=== PATIENT | female | born 1995 | race Caucasian/White ===

== ENCOUNTER 2018-12-21 10:10 | Emergency (ER) | payer OTHER ==
[~2018-12-21] VITALS: Ht 154.9 cm; Wt 53.5 kg
[~2018-12-21 10:10] MED LIST: ADVIL200 M1 PO; AZO CRANBERRY1 EAC1 PO; BACTRIM DS TAB1 EACH PO; BUSPIRONE HCL5 MG PO; DEPO SHOT; ESCITALOPRAM OXA5 MG PO; KELNOR 1-351 EACH PO; LEVAQUIN500 MG PO; MACROBID 100 M100 MG PO; NORCO 5-325 TA1 EACH PO; ORTHO TRI-CYCL1 EAC1 PO; VENTOLIN HFA18 GM INH; XANAX XR0.5 MG PO; XANAX0.5 MG PO
[2018-12-21] MEDS ORDERED: PRENATA CHEWAB1 EACH PO (10:30)
== END 2018-12-21 14:00 | disposition home or self-care (01) ==
LOC: ED 10:10
DX: O99.89 Other specified diseases and conditions complicating pregnancy, childbirth and the puerperium (principal); R10.2 Pelvic and perineal pain; F41.9 Anxiety disorder, unspecified; J45.909 Unspecified asthma, uncomplicated; Z79.899 Other long term (current) drug therapy; Z3A.01 Less than 8 weeks gestation of pregnancy
CPT/HCPCS: 36415; 76801; 76817; 80053; 81001; 84702; 85025; 99284-25

== ENCOUNTER 2020-01-20 07:02 | Emergency (ER) | payer OTHER ==
[~2020-01-20] VITALS: Ht 154.9 cm; Wt 56.2 kg
[~2020-01-20 07:02] MED LIST changes: +MOTRIN IB200 MG PO; +PRENATA CHEWAB1 EACH PO
== END 2020-01-20 09:30 | disposition home or self-care (01) ==
LOC: ED 07:02
DX: O99.283 Endocrine, nutritional and metabolic diseases complicating pregnancy, third trimester (principal); E86.0 Dehydration; Z3A.34 34 weeks gestation of pregnancy
CPT/HCPCS: 80053; 81001; 85025; 87088; 96360; 99284-25; C9803; J7030; U0002

== ENCOUNTER 2020-02-12 20:15 | Inpatient (IN) | payer OTHER ==
--- NOTE | 2020-02-14 06:48 | PR ---
[facility] [address] [place], [place] [address] Signed PP Progress Notes Datetime Report Generated by JUDY: 02/14/2020 06:48 SUBJECTIVE: [id number] Pain: Within Normal Limits Nausea/Vomiting: Denies Flatus: Yes Bowel Movement: No Vital Signs: [id number] Vital Signs: Reviewed Notable Details: No sustained severe range BPs; Pt now on procardia XL 30mg daily Cardiovascular: Normal Respiratory: Normal Abdomen/Uterus: Normal Lochia: Normal Vulva/Perineum: Not Done Breasts: Not Done CVA Tenderness: Normal Extremities: Normal Incision: Not Applicable Progress: Normal Exam Comments: Fundus firm U-2 nontender IMPRESSION/PLAN/PROCEDURES: [id number] Impression: Normal Progression; Induced Hypertension Plan: Discharge Progress Notes: Pt seen and examined. Doing well. Ambulating voiding and tolerating full diet. Pain and lochia minimal. well. Some elevated BPs last night but did not require emergent hypertensive management. Pt was started on Procardia XL 30mg daily and BPs improved. No BOSCH, RUQ pain, or visual changes. Reviewed d/c education in detail. Pt will f/u in 2 d for BP check and 2/6 wks for pp visits. All questions answered Signing Physician: Bronson Valdivia DO Copies: ~ *Electronically Signed* 02/14/20 0648 BRONSON VALDIVIA DO PATIENT NAME: TAM JOHNSON PROGRESS NOTE DATE OF : 89 PHYSICIAN: BRONSON VALDIVIA DO RPT #: [id number] REPORT IS CONFIDENTIAL AND NOT TO BE RELEASED WITHOUT AUTHORIZATION
== END 2020-02-14 14:00 | disposition home or self-care (01) | DRG 768 ==
LOC: FBCO 20:15 → FBC 21:12
PROVIDERS: ADMIT Obstetrics & Gynecology
PROC: 3E0S3BZ Introduction of Anesthetic Agent into Epidural Space, Percutaneous Approach (ICD-10-PCS; 2020-02-12)
PROC: 00HU33Z Insertion of Infusion Device into Spinal Canal, Percutaneous Approach (ICD-10-PCS; 2020-02-12)
PROC: 10E0XZZ Delivery of Products of Conception, External Approach (ICD-10-PCS; principal; 2020-02-13)
PROC: 0UQM0ZZ Repair Vulva, Open Approach (ICD-10-PCS; 2020-02-13)
PROC: 0HQ9XZZ Repair Perineum Skin, External Approach (ICD-10-PCS; 2020-02-13)
DX: O14.04 Mild to moderate pre-eclampsia, complicating childbirth (principal); Z37.0 Single live birth; Z3A.38 38 weeks gestation of pregnancy; O70.0 First degree perineal laceration during delivery; O71.82 Other specified trauma to perineum and vulva
CPT/HCPCS: 01960; 36415; 80053; 82570; 84156; 84550; 85025; 85027; A9270; J2590; J2795; J7121

== ENCOUNTER 2022-04-29 17:44 | Inpatient (IN) | payer OTHER ==
[~2022-04-29] VITALS: Ht 154.9 cm; Wt 68.0 kg
--- NOTE | 2022-04-29 18:37 | PR ---
[facility] [address] [facility] [place], [place] [address] Signed Progress Notes IP Datetime Report Generated by CPN: 04/29/2022 18:37 PROGRESS NOTES: [id number] Impression: Normal Progression of Labor; Reassuring Heart Rate Procedures: Sterile Vag Exam Plan: Continue Present Management; Anesthesia Consult; Anticipate Vaginal Delivery Informed Consent Obtain: Vaginal Delivery VITAL SIGNS: [id number] EXAM: [id number] Dilatation: 4.0 Effacement: 90 Station: -1 MEMBRANES: [id number] Membranes Status: Ruptured Comments: Pt is pleasant 26 yr old w/ IUP @ 39w4d presents to [facility] c/o SROM and CTXs increasing in frequency and intensity. complicated Hx preE in prior , depression, and anemia. O+, RI, GBS neg. +FM, no vaginal bleeding or meconium stained fluid. Requesting epidural. Reviewed prior delivery, EFW, and adequate pelvis. Reviewed anticipated course of delivery and anticipate . All questions answered. FETUS A: [id number] FETUS B: [id number] Signing Physician: Bronson Valdivia DO Copies: ~ *Electronically Signed* 04/29/22 839 BRONSON VALDIVIA DO PATIENT NAME: TAM JOHNSON PROGRESS NOTE DATE OF : 95 PHYSICIAN: BRONSON VALDIVIA DO RPT #: [id number] REPORT IS CONFIDENTIAL AND NOT TO BE RELEASED WITHOUT AUTHORIZATION
--- NOTE | 2022-04-30 13:18 | PR ---
[facility] [address] [facility] [place], [place] [address] Signed PP Progress Notes Datetime Report Generated by CPN: 04/30/2022 13:18 SUBJECTIVE: [id number] Pain: Within Normal Limits Nausea/Vomiting: Denies Flatus: Yes Bowel Movement: No Vital Signs: [id number] Vital Signs: Reviewed Notable Details: Intermittened elevated BPs Cardiovascular: Normal Respiratory: Normal Abdomen/Uterus: Normal Lochia: Normal Vulva/Perineum: Not Done Breasts: Not Done CVA Tenderness: Normal Extremities: Normal Incision: Not Applicable Progress: Normal Exam Comments: Fundus firm U-2 nontender IMPRESSION/PLAN/PROCEDURES: [id number] Impression: Normal Progression Plan: Continue Present Management Progress Notes: Pt seen and examined. Doing well. Ambulating, voiding, and tolerating full diet. Pain and lochia minimal. well. Some intermittent elevated BPs. No BOSCH, RUQ pain, or visual changes. Reviewed s/sx pp PreE. Will continue watching BPs. PreE labs ordered. Anticipate d/c home tomorrow. Signing Physician: Bronson Valdivia DO Copies: ~ *Electronically Signed* 04/30/22 1636 BRONSON VALDIVIA DO PATIENT NAME: TAM JOHNSON PROGRESS NOTE DATE OF : 95 PHYSICIAN: BRONSON VALDIVIA DO RPT #: [id number] REPORT IS CONFIDENTIAL AND NOT TO BE RELEASED WITHOUT AUTHORIZATION
--- NOTE | 2022-04-30 20:36 | PR ---
[facility] [address] [place], [place] [address] Signed PP Progress Notes Datetime Report Generated by CPN: 04/30/2022 20:36 SUBJECTIVE: [id number] Pain: Within Normal Limits Nausea/Vomiting: Denies Flatus: Yes Bowel Movement: No Vital Signs: [id number] Vital Signs: Reviewed Notable Details: Sustained elevated but non-severe BPs Cardiovascular: Normal Respiratory: Normal Abdomen/Uterus: Normal Lochia: Normal Vulva/Perineum: Not Done Breasts: Not Done CVA Tenderness: Normal Extremities: Normal Incision: Not Applicable Progress: Normal Exam Comments: Fundus firm. No significant edema. Pt laughing and joking w/ IMPRESSION/PLAN/PROCEDURES: [id number] Impression: Normal Progression Other Impression: Preeclampsia without severe features Plan: Continue Present Management Progress Notes: Pt seen and examined. Doing well. Ambulating, voiding, and tolerating full diet. Normal urine output. Elevated BPs (nonsevere) and no BOSCH, RUQ pain, or visual changes. Labs demonstrate proteinuria c/w dx of preeclampsia. Reviewed dx w/ pt, and monitoring of BPs and s/sx preE. Pt w/ hx PreE w/ last . Consider initiation of procardia XL 30mg if elevated BPs continue. Pt and partner understand and agree. Anticipate d/c home tomorrow w/ close interval BP monitoring Signing Physician: Bronson Valdivia DO Copies: ~ *Electronically Signed* 04/30/222035 BRONSON VALDIVIA DO PATIENT NAME: TAM JOHNSON PROGRESS NOTE DATE OF : 95 PHYSICIAN: BRONSON VALDIVIA DO RPT #: [id number] REPORT IS CONFIDENTIAL AND NOT TO BE RELEASED WITHOUT AUTHORIZATION
--- NOTE | 2022-05-01 09:17 | PR ---
[facility] [address] [place], [place] [address] Signed PP Progress Notes Datetime Report Generated by CPN: 05/01/2022 09:17 SUBJECTIVE: [id number] Pain: Within Normal Limits Nausea/Vomiting: Denies Flatus: Yes Bowel Movement: Yes Vital Signs: [id number] Vital Signs: Reviewed; Within Normal Limits Notable Details: Episode of severe BPs overnight req labetalol now resolved Cardiovascular: Normal Respiratory: Normal Abdomen/Uterus: Normal Lochia: Normal Vulva/Perineum: Not Done Breasts: Not Done CVA Tenderness: Normal Extremities: Normal Incision: Not Applicable Progress: Normal Exam Comments: Fundus firm U-2 nontender. No BOSCH, RUQ pain or visual changes. IMPRESSION/PLAN/PROCEDURES: [id number] Impression: Normal Progression Other Impression: Preeclampsia without sever features Plan: Discharge Procedures: None Progress Notes: Pt seen and examined. Doing well. Ambulating, voiding, and tolerating full diet. Pain and lochia minimal. wel. No fevers chills. No BOSCH, RUQ pain, or visual changes. Reviewed overnight BPs req labetalol and addition or oral procardia XL. BPs much improved this morning. Will continue procardia XL 30mg PO daily. Pt desires d/c home. Reviewed PreE in detail including s/sx. Pt had home BP cuff and will monitor. F/U in 1-2 d in office for BP check; sooner if needed. Planning OCPs for pp contraception. Signing Physician: Bronson Valdivia DO *Electronically Signed* 05/01/22 0917 BRONSON VALDIVIA DO PATIENT NAME: TAM JOHNSON ABUNDIO PROGRESS NOTE DATE OF : 95 PHYSICIAN: BRONSON VALDIVIA DO RPT #: [id number] REPORT IS CONFIDENTIAL AND NOT TO BE RELEASED WITHOUT AUTHORIZATION
== END 2022-05-01 15:05 | disposition home or self-care (01) | DRG 807 ==
LOC: FBCO 17:44 → FBC 18:05
PROVIDERS: ADMIT Obstetrics & Gynecology; ATTEND Obstetrics & Gynecology
PROC: 10E0XZZ Delivery of Products of Conception, External Approach (ICD-10-PCS; principal; 2022-04-29)
PROC: 3E0R3BZ Introduction of Anesthetic Agent into Spinal Canal, Percutaneous Approach (ICD-10-PCS; 2022-04-29)
PROC: 00HU33Z Insertion of Infusion Device into Spinal Canal, Percutaneous Approach (ICD-10-PCS; 2022-04-29)
DX: O42.02 Full-term premature rupture of membranes, onset of labor within 24 hours of rupture (principal); Z37.0 Single live birth; O14.04 Mild to moderate pre-eclampsia, complicating childbirth; O76 Abnormality in fetal heart rate and rhythm complicating labor and delivery; O69.1XX0 Labor and delivery complicated by cord around neck, with compression, not applicable or unspecified; O70.9 Perineal laceration during delivery, unspecified; Z3A.39 39 weeks gestation of pregnancy; Z79.82 Long term (current) use of aspirin; Z20.822 Contact with and (suspected) exposure to COVID-19
CPT/HCPCS: 01960; 36415; 80053; 82570; 82803; 84156; 85027; 86850; 86900; 86901; 87502; A9270; C9803; J2405; J2590; J2795; J3010; U0003

== ENCOUNTER 2022-05-04 20:06 | Emergency (ER) | payer OTHER ==
[~2022-05-04] VITALS: Ht 152.4 cm; Wt 69.0 kg
[2022-05-04] MEDS ORDERED: NIFEDIPINE ER30 M1 PO (20:23)
[2022-05-04] MEDS ORDERED: IBUPROFEN800 MG PO (20:23)
== END 2022-05-04 23:07 | disposition home or self-care (01) ==
LOC: ED 20:06
DX: O14.95 Unspecified pre-eclampsia, complicating the puerperium (principal); J45.909 Unspecified asthma, uncomplicated; Z79.899 Other long term (current) drug therapy
CPT/HCPCS: 36415; 80053; 81001; 83735; 85025